=== PATIENT | female | born 1960 | race Caucasian/White ===

== ENCOUNTER → 2016-05-19 | Outpatient (CLI) | payer BC | LOC: COL.VAS 08:00 | DX: C50.412 Malignant neoplasm of upper-outer quadrant of left female breast (principal) ==

== ENCOUNTER → 2016-05-24 | Outpatient (CLI) | payer BC | LOC: MC.RAD 13:00 | DX: D24.2 Benign neoplasm of left breast (principal); C50.412 Malignant neoplasm of upper-outer quadrant of left female breast; Z17.0 Estrogen receptor positive status [ER+] ==

== ENCOUNTER → 2016-11-25 | Outpatient (CLI) | payer BC | LOC: MC.RAD 09:54 | DX: Z90.12 Acquired absence of left breast and nipple (principal); Z85.3 Personal history of malignant neoplasm of breast; Z92.3 Personal history of irradiation; I10 Essential (primary) hypertension ==

== ENCOUNTER → 2017-05-25 | Outpatient (CLI) | payer BC | LOC: MC.RAD 12:41 | DX: I10 Essential (primary) hypertension (principal); Z85.3 Personal history of malignant neoplasm of breast; Z92.3 Personal history of irradiation; Z98.890 Other specified postprocedural states ==

== ENCOUNTER → 2018-11-30 | Outpatient (CLI) | payer BC | LOC: MC.RAD 10:05 | DX: Z12.31 Encounter for screening mammogram for malignant neoplasm of breast (principal); Z98.890 Other specified postprocedural states; Z85.3 Personal history of malignant neoplasm of breast; Z98.82 Breast implant status; Z92.3 Personal history of irradiation ==

== ENCOUNTER → 2019-12-06 | Outpatient (CLI) | payer BC | LOC: MC.RAD 12-03 10:00 | DX: Z12.31 Encounter for screening mammogram for malignant neoplasm of breast (principal); Z98.890 Other specified postprocedural states; Z98.82 Breast implant status; Z92.3 Personal history of irradiation ==

== ENCOUNTER → 2020-12-08 | Outpatient (CLI) | payer BC | LOC: MC.RAD 08:00 | DX: Z12.31 Encounter for screening mammogram for malignant neoplasm of breast (principal); Z85.3 Personal history of malignant neoplasm of breast; Z98.890 Other specified postprocedural states; Z92.3 Personal history of irradiation ==

== ENCOUNTER → 2021-12-10 | Outpatient (CLI) | payer BC | LOC: MC.RAD 08:36 | DX: Z12.31 Encounter for screening mammogram for malignant neoplasm of breast (principal); Z85.3 Personal history of malignant neoplasm of breast; Z98.890 Other specified postprocedural states; Z92.3 Personal history of irradiation ==

== ENCOUNTER 2023-02-16 08:56 | Day surgery (SDC) | payer BC ==
[~2023-02-16] VITALS: Ht 167.6 cm; Wt 108.3 kg
[2023-02-16] MEDS ORDERED: PRINIVIL20 MG PO (09:25)
[2023-02-16] MEDS ORDERED: FOSAMAX 70MG TA70 MG PO (09:26)
[2023-02-16] MEDS ORDERED: ARIMIDEX1 MG PO (09:26)
[2023-02-16] MEDS ORDERED: MULTIVITAMIN FO1 CAP PO (09:28)
[2023-02-16] MEDS ORDERED: NEXIUM 20MG20 MG PO (09:28)
[2023-02-16] MEDS ORDERED: CALCIUM 600 MG1 EAC2 PO (09:28)
[2023-02-16] MEDS ORDERED: VITAMIND3 5000 PO (09:29)
[2023-02-16] MEDS ORDERED: PROBIOTIC-10 370 MG PO (09:30)
[2023-02-16] MEDS ORDERED: PRESERVISION1 SGL PO (09:31)
[2023-02-16 09:59] VITALS: BP 128/73; PULSE 71; TEMP 98
[2023-02-16 11:40] VITALS: BP 122/72; PULSE 82; TEMP 97.2
[2023-02-16 11:45] VITALS: BP 122/74; PULSE 77
[2023-02-16 12:00] VITALS: BP 150/85; PULSE 64
--- NOTE | 2023-02-16 12:24 | NUR ---
1140- PATIENT RETURNS TO [facility] [place] [facility] VIA CART. PT AWAKE AND ALERT. RESPIRATIONS UNLABORED. AMBULATED TO RECLINER CHAIR WITH 2:1 SBA. PT DENIES NAUSEA OR ABDOMINAL PAIN. HOOKED UP TO MONITOR AND VS OBTAINED. CALL LIGHT AT SIDE AND PRESENT. 1145- DR. TRAVIS IN ROOM SPEAKING WITH PATIENT. 1152- PATIENT TOLERATING DIET PEPSI AND MUFFIN WITHOUT NAUSEA OR DIFFICULTY SWALLOWING. 1207- D/C INSTRUCTIONS REVIEWED WITH PATIENT. PT VERBALIZED UNDERSTANDING AND A COPY OF INSTRUCTIONS PROVIDED IN D/C FOLDER. 1215- PATIENT DRESSES SELF. 1224- PATIENT DISCHARGED FROM UNIT VIA W/C TO A PERSONAL VEHICLE. PT LEFT HOSPITAL IN STABLE CONDITION.
== END 2023-02-16 12:24 | disposition home or self-care (01) ==
LOC: SDCO 08:56
DX: K29.50 Unspecified chronic gastritis without bleeding (principal); K21.00 Gastro-esophageal reflux disease with esophagitis, without bleeding; K44.9 Diaphragmatic hernia without obstruction or gangrene; Z79.899 Other long term (current) drug therapy
CPT/HCPCS: J2704; J7120

== ENCOUNTER → 2024-01-09 | Outpatient (CLI) | payer BC ==
[~2024-01-09] MED LIST: ARIMIDEX1 MG PO; CALCIUM 600 MG1 EAC2 PO; FOSAMAX 70MG TA70 MG PO; MULTIVITAMIN FO1 CAP PO; NEXIUM 20MG20 MG PO; PRESERVISION1 SGL PO; PRINIVIL20 MG PO; PROBIOTIC-10 370 MG PO; VITAMIND3 5000 PO
== END ==
LOC: MC.RAD 08:39
DX: Z12.31 Encounter for screening mammogram for malignant neoplasm of breast (principal)